=== PATIENT | female | born 1995 | race Caucasian/White ===

== ENCOUNTER 2024-08-03 12:56 | Outpatient (REF) | payer MEDICAID, SELFPAY ==
[2024-08-03 15:08] LABS: HCT 42.4 % (36.0-46.0); HGB 13.9 g/dL (11.2-15.7); MCH 28.2 pg (27.0-33.0); MCHC 32.8 % (32.0-36.0); MCV 86 fL (80-95); MPV 10.4 fL (8.0-11.0); Platelet Count 213 10^3/uL (130-400); RBC 4.93 10^6/uL (3.93-5.22); RDW 12.4 % (11.7-14.6); RDW-SD 38.8 fL
[2024-08-03 15:09] LABS: Bilirubin Negative (Negative); Blood Negative (Negative); Clarity Clear (Clear); Glucose Negative (Negative); Ketones Negative (Negative); Leukocyte Esterase Negative (Negative); Nitrite Negative (Negative); Urobilinogen 0.2 mg/dL (Up to 0.2)
[2024-08-03 15:22] LABS: Hemoglobin A1C 5.4 % (<5.7)
[2024-08-03 15:31] LABS: ALT 45 U/L (14-59); AST 21 U/L (15-37); Albumin 4.5 g/dL (3.4-5.0); Alkaline Phosphatase 81 U/L (46-116); BUN 13 mg/dL (7-18); Bilirubin, Total 0.5 mg/dL (0.2-1.0); CREATININE 0.8 mg/dL (0.55-1.02); Calcium 9.7 mg/dL (8.5-10.1); Calculated LDL 113 mg/dL (<100); Chloride 104 mmol/L (98-107); Cholesterol 208 mg/dL (<200); Estimated GFR 101.59 (mL/min/1.73m2); Glucose 109 mg/dL (74-106); HDL Cholesterol 80 mg/dL (>or=50); Potassium 3.9 mmol/L (3.5-5.1); Sodium 142 mmol/L (136-145); Total Protein 8.5 g/dL (6.4-8.2); Triglyceride 79 mg/dL (<150)
[2024-08-03 15:56] LABS: C-Reactive Protein < 0.50 mg/dL (<or=0.5)
[2024-08-04 11:43] LABS: HIV-1/2 Ag & Ab Screen Negative (Negative)
[2024-08-04 11:57] LABS: Hepatitis C Ab w Rflx HCV PCR Negative (Negative)
[2024-08-04 13:44] LABS: Albumin g/dL 4.8 g/dL (3.6-5.2)
== END 2024-08-03 12:57 | disposition home or self-care (01) ==
LOC: NCHCN 12:56
PROVIDERS: Visit Provider Nurse Practitioner Family
DX: Z00.00 Encounter for general adult medical examination without abnormal findings (principal); M35.00 Sjogren syndrome, unspecified
CPT/HCPCS: 80053; 80061; 85027; 86803; 87389; 81003; 83036; 84165; 86140

== ENCOUNTER 2025-03-16 19:21 | Outpatient (REF) | payer MEDICAID, SELFPAY ==
--- NOTE | 2025-03-16 13:22 | PAPFT_PTH ---
PATIENT: Zara Figueroa LOC: [facility]#:[id number] AGE/SX: 29/F ROOM: RE03/16/[address]: Yadira Jones : 1995 BED: DIS: 03/16/2025 SPEC #: [id number] RECD: 03/19/25 12:45 STATUS: EULALIO REQ #: [id number] CAESAR: 03/16/25 13:[address]: Yadira Jones DEPT: [facility] Cytology RECD BY: Aracelis Sosa ENTERED: 03/19/25 12:45 SP TYPE: PAPFT OTHR DR: Unknown,Unknown Tissues: 1 - CX/ENDOCX FOR PAP SMEARS Procedures: PAP THIN PREP/[facility] Screening HPV DNA PROBE Comments: [id number] (HPV 16 & 18/45) (CHLAMYDIA/GC)
[2025-03-20 12:04] LABS: Chlamydia Result Negative (Negative); GC Result Negative (Negative)
== END 2025-03-16 19:22 | disposition home or self-care (01) ==
LOC: NCHCN 19:21
PROVIDERS: Visit Provider Nurse Practitioner Family
DX: Z12.4 Encounter for screening for malignant neoplasm of cervix (principal)
CPT/HCPCS: 87491; 87591; 88142; 87624